=== PATIENT | male | born 1950 | race Caucasian/White ===

== ENCOUNTER → 2024-09-05 | Outpatient (CLI) | payer OTHER ==
[~2024-09-05] MED LIST: REGADENOSON 0.4 MG/5 ML PF SYG IVP ONE
--- NOTE | 2024-09-07 14:37 | HMCSR ---
APPROVED REPORT Height: 6 ft 0in Weight: 227 lbs TEST INDICATIONS Congestive Heart Failure The imaging protocol used to acquire images was Rest Tc-99m/stress Tc-99m 1 day Consent: The procedure was explained and understood by the patient. Informerd consent was witnessed Carmencita Kay RN First, low dose rest was performed then high dose stress. RESTING DATA: The resting ekg shows: JOCELIN UNDERWOOD's Rest SPECT myocardial perfusion imaging was performed in supine position minutes following the intra venous injection of 10.2 mCi of Tc-99 Sestamibi. Time of rest injection: 09:00: Date: 09/05/2024 PHARMACOLOGIC STRESS: Pharmacologic stress test was performed by injecting regadenoson 0.4 mg IV push followed by the intra venous injection of 26 mCi of Tc-99 Sestamibi. Time of stress injection: 10:44: Date: 09/05/2024 Heart Rate at time of stress injection: 59 bpm. The images were gated to evaluate regional wall motion and calculate left ventricular ejection fracti on. STRESS DETAILS Reason for Termination: Infusion complete Stress Symptoms: Dyspnea Max HR Achieved: 73 bpm % of APMHR Achieved: 59 Max Blood Pressure: 110/52 mmHg Stress ECG: JOCELIN UNDERWOOD's Study quality was excellent. Lung uptake was Normal. Artifact: No artifact LEFT VENTRICLE Size: The left ventricular size is normal. Systolic Function:The left ventricular systolic function is normal. Wall Motion: No regional wall motion abnormalities noted. The left ventricular ejection fraction was calculated to be 68%.TID = 1.21. LV PERFUSION The rest and stress images show normal perfusion. RV Size/Shape Normal RV Conclusion The left ventricular ejection fraction was calculated to be 68%.TID = 1.21. The rest and stress images show normal perfusion.
== END | disposition home or self-care (01) ==
LOC: RAH 08:42
PROVIDERS: ATTEND Internal Medicine Cardiovascular Disease
DX: I50.22 Chronic systolic (congestive) heart failure (principal); R06.00 Dyspnea, unspecified
CPT/HCPCS: 78452; 93017; J2785; A9500 ×2